=== PATIENT | female | born 1960 | race Caucasian/White ===

== ENCOUNTER → 2017-06-30 | Outpatient (CLI) | payer BC, OTHER ==
--- NOTE | 2017-07-02 07:09 | MM ---
Reason for exam: screening (asymptomatic). Last mammogram was performed 3 years and 6 months ago. History: Patient is postmenopausal. Family history of breast cancer in maternal aunt. Physical Findings: A clinical breast exam by your physician is recommended on an annual basis and results should be correlated with mammographic findings. MG Screening Mammo w CAD Bilateral CC and MLO view(s) were taken. Prior study comparison: January 08, 2014, bilateral MG screening mammo w CAD. November 05, 2011, bilateral digital screening mammo w/CAD. The breast tissue is heterogeneously dense. This may lower the sensitivity of mammography. There is chronic nodularity bilaterally. No significant changes when compared with prior studies. ASSESSMENT: Benign, BI-RAD 2 RECOMMENDATION: Routine screening mammogram of both breasts in 1 year.
== END | disposition home or self-care (01) ==
LOC: RADMAMWWP 14:50
PROVIDERS: ATTEND Family Medicine
DX: Z12.31 Encounter for screening mammogram for malignant neoplasm of breast (principal)
CPT/HCPCS: 77067

== ENCOUNTER → 2017-07-02 | Outpatient (CLI) | payer OTHER ==
--- NOTE | 2017-07-02 08:19 | US ---
EXAMINATION TYPE: US gallbladder DATE OF EXAM: 07/02/2017 COMPARISON: NONE CLINICAL HISTORY: R10.9 Abdominal Pain. RUQ pain that radiates to back EXAM MEASUREMENTS: Liver Length: 8.0 cm Gallbladder Wall: 0.3 cm CBD: 0.4 cm Right Kidney: 10.7 x 5.3 x 6.1 cm Pancreas: visualized portions wnl Liver: wnl Gallbladder: No stones seen Evidence for sonographic Vance's sign: No CBD: wnl Right Kidney: No hydronephrosis or masses seen, lower pole partially obscured by bowel gas IMPRESSION: 1. Right upper quadrant ultrasound is normal as visualized.
== END | disposition home or self-care (01) ==
LOC: RADUSWWP 07:36
PROVIDERS: ATTEND Family Medicine
DX: R10.9 Unspecified abdominal pain (principal)
CPT/HCPCS: 76705

== ENCOUNTER → 2017-07-12 | Outpatient (CLI) | payer OTHER ==
--- NOTE | 2017-07-12 23:11 | NM ---
EXAMINATION TYPE: NM hepatobiliary w EF DATE OF EXAM: 07/12/2017 COMPARISON: Ultrasound 07/02/2017 HISTORY: 56 year-old female right upper quadrant pain TECHNIQUE: After the intravenous administration of 5.41 mCi Tc 99m Mebrofenin hepatobiliary scintigra phy is performed. Immediate images post injection. FINDINGS: There is satisfactory initial accumulation of tracer by the liver. The gallbladder is visualized wit hin 10 minutes. The small bowel activity is noted within 14 minutes. At one hour 8 ounces of oral e nsure plus is given to mimic CCK and gallbladder ejection fraction is calculated at 67 %, in the norm al range. Therefore there is no scintigraphic evidence of cystic or common bile duct obstruction to suggest acute cholecystitis or gallbladder dyskinesia. IMPRESSION: No scintigraphic evidence for acute/chronic cholecystitis or biliary dyskinesia.
== END | disposition home or self-care (01) ==
LOC: RADNMMAIN 14:53
PROVIDERS: ATTEND Family Medicine
DX: R10.11 Right upper quadrant pain (principal)
CPT/HCPCS: 78226; A9537

== ENCOUNTER 2017-07-16 07:41 | Day surgery (SDC) | payer OTHER ==
[2017-07-14 14:51] VITALS: BMI 27.4
[2017-07-16 07:59] VITALS: RESP 16; TEMP 97
[2017-07-16] MEDS: LACTATED RINGERS 1,000 ML IV SCH ×2 (08:10→08:41)
[2017-07-16] MEDS ORDERED: GLUCAGON 1 MG/ML VIAL ONE (08:45)
[2017-07-16] MEDS ORDERED: PROPOFOL 10 MG/ML 20 ML VIAL IV ONE (08:45)
--- NOTE | 2017-07-16 08:46 | P.GSHP ---
History of Present Illness H&P Date: 07/16/17 Chief Complaint: Screening colonoscopy This a 56-year-old female for from Dr. Donald Shafer. Patient rents today for screening colonoscopy. She's never had a colonoscopy before. Past Medical History Past Medical History: Hypertension Additional Past Medical History / Comment(s): essential tremors, IBS symptoms @ times, pain up high under rib cage @times History of Any Multi-Drug Resistant Organisms: None Reported Past Surgical History: Orthopedic Surgery, Tubal Ligation Additional Past Surgical History / Comment(s): hedy fundoplasty, right CTS Past Anesthesia/Blood Transfusion Reactions: No Reported Reaction Smoking Status: Former smoker - Past Family History Father Family Medical History: Cancer Medications and Allergies Home Medications Medication Instructions Recorded Confirmed Type Cholecalciferol [Vitamin D3] 1,000 unit PO DAILY 07/14/17 07/16/17 History Naproxen [Naprosyn] 500 mg PO Q12HR PRN 07/14/17 07/16/17 History Sertraline [Zoloft] 200 mg PO DAILY 07/14/17 07/16/17 History amLODIPine BESYLATE/BENAZEPRIL 1 cap PO DAILY 07/14/17 07/16/17 History [Lotrel 5-10 mg Capsule] buPROPion [Wellbutrin] 100 mg PO DAILY 07/14/17 07/16/17 History Allergies Allergy/AdvReac Type Severity Reaction Status Date / Time No Known Allergies Allergy Verified 07/16/17 08:00 Surgical - Exam Vital Signs Temp Pulse Resp BP Pulse Ox 97.0 F L 56 L 16 116/70 94 L 07/16/17 07:58 07/16/17 07:58 07/16/17 07:58 07/16/17 07:58 07/16/17 07:58 - General well developed, no distress - Eyes PERRL - ENT normal pinna - Neck no masses - Respiratory normal expansion - Cardiovascular Rhythm: regular - Abdomen Abdomen: soft, non tender Assessment and Plan Assessment: We will perform screening colonoscopy.
--- NOTE | 2017-07-16 09:11 | P.OP ---
Date of Procedure: 07/16/17 Preoperative Diagnosis: Screening colonoscopy, history of GERD Postoperative Diagnosis: Normal colon No evidence of hiatal hernia Minimal esophagitis Procedure(s) Performed: EGD Colonoscopy Anesthesia: MAC Surgeon: Hector Atkins Pathology: other (Antral, esophagus) Condition: stable Disposition: PACU Description of Procedure: PROCEDURE: The patient was placed on the endoscopy table in the lateral position. Digital rectal examination was performed which revealed no abnormalities. . Flexible colonoscope was then placed in the patient's anus and passed throughout the entire colon. The ileocecal valve was visualized. The cecum, ascending, transverse, descending and sigmoid colon were normal. The rectum was normal as well. There were no masses, polyps or diverticula noted in the entire colon. Next, the gastroscope was placed oropharynx passed in the esophagus into the stomach. Scope was then placed through the pylorus. The first and second portion of the duodenum appeared normal. Scope was then brought back the antrum and this appeared mildly inflamed. A biopsies performed. Scope was retroflexed. The remainder some appeared normal. There is no evidence of hiatal hernia. The fundoplication wrap appeared to be normal position. The GE junction at 40 cm. The distal esophagus had minimal esophagitis and a biopsies performed. The proximal esophagus. Normal. Scope was withdrawn for patient.
[2017-07-16 09:31] VITALS: BP 124/72; PULSE 54
--- NOTE | 2017-07-20 18:05 | CDI ---
Outpatient Documentation Clarification Form Date: 07/20/17 CDS/Ob Gyn Name: Jessica Long Phone: If any questions, call Annalee Russo Production Maintenance Mechanic at [phone] Patient Name: Mary Castañeda Admit Date: 07/16/17 Discharge Date: 07/16/17 ATTENTION: The [facility] Coding Staff appreciate your assistance in clarifying documentation. Please respond to the clarification below the line at the bottom and electronically sign. The [facility] Coding staff will review the response and follow-up if needed. Please note: Queries are made part of the Legal Health Record. If you have any questions, please contact the Production Maintenance Mechanic. Dear Dr. Atkins The pathology report shows a rectal biopsy. The colonoscopy report does not reflect any biopsy being performed and instead states things as normal. Please clarify if a biopsy was or was not done. If it was performed, please provide a detailed description of that portion of the procedure. Thank you for your kind consideration. A hyperplastic polyp in the rectum was biopsied with the cold forcep. DIONTE
== END 2017-07-16 10:03 | disposition home or self-care (01) ==
LOC: ORWHC2ENDO 07:41
PROVIDERS: ATTEND Surgery
DX: Z12.11 Encounter for screening for malignant neoplasm of colon (principal); K62.1 Rectal polyp; K21.0 Gastro-esophageal reflux disease with esophagitis; K29.70 Gastritis, unspecified, without bleeding; I10 Essential (primary) hypertension; G25.0 Essential tremor; Z79.899 Other long term (current) drug therapy; Z98.51 Tubal ligation status; Z87.891 Personal history of nicotine dependence
CPT/HCPCS: 88305; 45380; 43239; J1610; J2704

== ENCOUNTER → 2021-02-13 | Outpatient (CLI) | payer OTHER ==
--- NOTE | 2021-02-14 09:53 | MM ---
Reason for exam: screening (asymptomatic). Last mammogram was performed 3 years and 8 months ago. History: Patient is postmenopausal. Family history of breast cancer in maternal aunt. Physical Findings: A clinical breast exam by your physician is recommended on an annual basis and results should be correlated with mammographic findings. MG Screening Mammo w CAD Bilateral CC and MLO view(s) were taken. Prior study comparison: June 30, 2017, bilateral MG screening mammo w CAD. January 08, 2014, bilateral MG screening mammo w CAD. The breast tissue is heterogeneously dense. This may lower the sensitivity of mammography. There is no discrete abnormality. No significant changes when compared with prior studies. ASSESSMENT: Negative, BI-RAD 1 RECOMMENDATION: Routine screening mammogram of both breasts in 1 year.
== END | disposition home or self-care (01) ==
LOC: RADMAMWWP 07:56
PROVIDERS: ATTEND Family Medicine
DX: Z12.31 Encounter for screening mammogram for malignant neoplasm of breast (principal); Z80.3 Family history of malignant neoplasm of breast
CPT/HCPCS: 77067

== ENCOUNTER → 2023-02-26 | Outpatient (CLI) | payer OTHER ==
--- NOTE | 2023-03-01 08:27 | MM ---
Reason for Exam: Screening (asymptomatic). Last mammogram was performed 2 year(s) and 1 month(s) ago. Patient History: Menarche at age 11. First Full-Term at age 21. Postmenopausal. Maternal aunt had breast cancer, age 50. Risk Values: Luciana 5 year model risk: 1.4%. NCI Lifetime model risk: 6.0%. Prior Study Comparison: 01/08/2014 Bilateral Screening Mammogram, [facility]. 06/30/2017 Bilateral Screening Mammogram, [facility]. 02/13/2021 Bilateral Screening Mammogram, [facility]. Tissue Density: There are scattered fibroglandular densities. Findings: Analyzed By CAD. There is no suspicious group of microcalcifications or new suspicious mass. Overall Assessment: Negative, BI-RAD 1 Management: Screening Mammogram of both breasts in [address] [facility] will attempt to contact patient to return for supplemental views and ultrasound if indicated. Patient should continue monthly self-breast exams. A clinical breast exam by your physician is recommended on an annual basis. This exam should not preclude additional follow-up of suspicious palpable abnormalities. Note on Luciana scores and lifetime risk: 1. A Luciana score greater than 3% is considered moderate risk. If this is the case, consider specialist referral to assess eligibility for a risk reducing agent. 2. If overall lifetime risk for the development of breast cancer is 20% or higher, the patient may qualify for future screening with alternating mammogram and breast MRI. Electronically signed and approved by: Chucky Park DO
== END | disposition home or self-care (01) ==
LOC: RADMAMWWP 09:28
PROVIDERS: ATTEND Family Medicine
DX: Z12.31 Encounter for screening mammogram for malignant neoplasm of breast (principal); Z80.3 Family history of malignant neoplasm of breast; Z78.0 Asymptomatic menopausal state
CPT/HCPCS: 77067